=== PATIENT | female | born 1955 | race Caucasian/White ===

== ENCOUNTER → 2018-11-15 | Outpatient (REF) | payer BC ==
[~2018-11-15] MED LIST: CENTTAB PO; LOSA100T5 PO; MAGNESIUM ZINC; POTA595T8 PO
== END ==
LOC: M LAB REF 12:12
PROVIDERS: ATTEND Nurse Practitioner Adult Health
DX: R30.0 Dysuria (principal)

== ENCOUNTER → 2020-12-06 | Outpatient (REF) | payer MEDICARE, BC | LOC: M LAB REF 08:33 | PROVIDERS: ATTEND Physician Assistant | DX: L80 Vitiligo (principal) ==

== ENCOUNTER → 2020-12-20 | Outpatient (REF) | payer MEDICARE, BC | LOC: M LAB REF 15:31 | PROVIDERS: ATTEND Physician Assistant | DX: L57.0 Actinic keratosis (principal) ==

== ENCOUNTER → 2021-02-19 | Outpatient (CLI) | payer MEDICARE, BC ==
[~2021-02-19] MED LIST changes: +PROHANCE 279.3MG/ML 15ML VIAL As Ordered ONE; +PROHANCE 279.3MG/ML 5ML VIAL As Ordered ONE
--- NOTE | 2021-02-19 16:53 | REP ---
INDICATION: LT KIDNEY MASS. COMPARISON: Prior ultrasound 07/23/[address] examinations of the abdomen 04/25/2020 and 06/19/2014 the latest prior CTs from an outside institution TECHNIQUE: Pre and post contrast 3T MRI of the was performed utilizing various sequences. Gadolinium utilized: 20 cc ProHance FINDINGS: Seen in the superior pole the left kidney there is a large 4.7 by 3.4 by 4.5 cm sized high adipose content mass. The size of this has not changed significantly compared to the prior exams although they are technically different. This has significant T1 shortening with a few low intermediate nodules with in the central mass. On T2 weighted imaging this is of extreme T2 shortening. There is no evidence of significant contrast enhancement, however, the cells are seen traversing this mass. There is no associated adenopathy. There is no para-aortic adenopathy. The adrenal glands and right kidney are within normal limits. Two tiny focal areas of intense T1 and T2 prolongation are seen the pancreatic tail which do not enhance after intravenous gadolinium consistent with tiny cysts. These were seen on the prior outside CT as well. There are multiple known previously imaged hepatic cysts. There is no free fluid in the abdomen. The cortical and marrow signal seen throughout the imaged osseous structures is within normal limits. IMPRESSION: 1. 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 This was imaged by CT as far back as 08/08/2008. 2. Hepatic and pancreatic cysts. <Electronically signed by Edgard Orellana > 02/19/21 [id number]
== END ==
LOC: M RAD 14:42
PROVIDERS: ATTEND Family Medicine
DX: D41.02 Neoplasm of uncertain behavior of left kidney (principal); K86.2 Cyst of pancreas; K76.89 Other specified diseases of liver
CPT/HCPCS: 74183; A9576

== ENCOUNTER → 2021-09-29 | Outpatient (REF) | payer MEDICARE, BC ==
[~2021-09-29] MED LIST changes: -PROHANCE 279.3MG/ML 15ML VIAL As Ordered ONE; -PROHANCE 279.3MG/ML 5ML VIAL As Ordered ONE
== END ==
LOC: M LAB REF 14:01
PROVIDERS: ATTEND Physician Assistant
DX: D23.72 Other benign neoplasm of skin of left lower limb, including hip (principal); L57.0 Actinic keratosis

== ENCOUNTER → 2025-09-02 | Outpatient (REF) | payer MEDICARE, BC | LOC: M LAB REF 19:11 | PROVIDERS: ATTEND Registered Nurse | DX: N39.0 Urinary tract infection, site not specified (principal) ==